=== PATIENT | female | born 1930 | race African-American/Black ===

== ENCOUNTER → 2017-02-05 10:44 | Outpatient (CLI) | payer MEDICARE, OTHER ==
[2016-06-23 11:05] VITALS: BMI 23.9
[~2017-02-05 10:44] MED LIST: ACETAMINOPHEN500 M1 PO; BAYER ASPIRIN325 MG PO; CALAN SR240 MG PO; CATAPRES0.2 MG PO; CRANBERRY 400 M1 TA1 PO; ECOTRIN325 MG PO; FLAGYL250 MG PO; FOLATE0.4 MG PO; HYDRALAZINE HCL50 MG; K-TAB10 MEQ PO; LISINOPRIL-HCTZ1 T13 PO; NORVASC10 MG PO; ZOCOR20 MG PO
[2017-02-05 11:22] LABS: CREATININE - SERUM 1.1 mg/dL (0.6-1.3)
== END | disposition home or self-care (01) ==
LOC: D.LAB 09:45 → D.MRI 10:00 → D.LAB 10:44
PROVIDERS: Neurological Surgery
DX: D35.2 Benign neoplasm of pituitary gland (principal)

== ENCOUNTER 2017-05-10 15:45 | Emergency (ER) | payer MEDICARE, OTHER ==
[2016-06-23 11:05] VITALS: BMI 23.9
== END 2017-05-10 17:08 | disposition home or self-care (01) ==
LOC: D.ER 15:45
DX: S00.93XA Contusion of unspecified part of head, initial encounter (principal); W20.8XXA Other cause of strike by thrown, projected or falling object, initial encounter; Y93.89 Activity, other specified; Y92.029 Unspecified place in mobile home as the place of occurrence of the external cause; I10 Essential (primary) hypertension

== ENCOUNTER 2019-01-03 08:00 | Outpatient (CLI) | payer MEDICARE, OTHER ==
[2016-06-23 11:05] VITALS: BMI 23.9
== END 2019-01-03 23:59 | disposition home or self-care (01) ==
LOC: D.MAMMO 08:00
PROVIDERS: ATTEND Family Medicine Adult Medicine
DX: N63.13 Unspecified lump in the right breast, lower outer quadrant (principal)

== ENCOUNTER → 2019-01-18 09:51 | Outpatient (CLI) | payer MEDICARE, OTHER ==
[2016-06-23 11:05] VITALS: BMI 23.9
== END | disposition home or self-care (01) ==
LOC: D.US 09:51
PROVIDERS: ATTEND Family Medicine Adult Medicine
DX: R92.8 Other abnormal and inconclusive findings on diagnostic imaging of breast (principal)

== ENCOUNTER 2019-06-21 11:03 | Inpatient (IN) | payer MEDICARE, OTHER ==
[~2019-06-21] VITALS: Ht 162.6 cm; Wt 59.0 kg
[2019-06-21 12:05] LABS: CALC OSMOLALITY 278 mosm/kg (275-300); CALCIUM 9.6 mg/dL (8.5-10.1); CARBON DIOXIDE 24.7 mmol/L (21.0-32.0); CHLORIDE - SERUM 100 mmol/L (98-107); CREATININE - SERUM 1.2 mg/dL (0.6-1.3); SODIUM 138 mmol/L (136-145); UREA NITROGEN 20 mg/dL (7-18); eGFR NON AFRICAN AMERICAN 45 mL/min (90-120)
[2019-06-21 12:08] LABS: GLUCOSE 105 mg/dL (74-106)
[2019-06-21 12:09] LABS: POTASSIUM - SERUM 4.3 mmol/L (3.5-5.1)
[2019-06-21 12:25] LABS: ALKALINE PHOSPHATASE 30 U/L (46-116); ALT (SGPT) 22 U/L (10-68); AMYLASE - SERUM 63 U/L (25-115); BILIRUBIN - TOTAL 0.68 mg/dL (0.2-1.3); LIPASE 133 U/L (73-393); PROTEIN - SERUM 8.2 g/dL (6.4-8.2)
[2019-06-21 12:26] LABS: ALBUMIN 4.2 g/dL (3.4-5.0); CKMB 1.2 U/L (0.0-3.6); CREATINE KINASE 170 UL (21-215); TROPONIN-I < 0.017 ng/mL (0.000-0.060)
[2019-06-21 12:37] LABS: BASOPHILS 0.4 % (0-2); EOSINOPHILS 0.4 % (0-7); HEMATOCRIT 36.4 % (36.0-48.0); HEMOGLOBIN 11.9 g/dL (12-16); IMMATURE GRANULOCYTES 0.5 % (0-5); LYMPHOCYTES 26.3 % (15-50); MCH 28.2 pg (26.0-34.0); MCHC 32.7 g/dL (31.0-37.0); MCV 86.3 fL (80.0-100.0); MEAN PLATELET VOLUME 8.7 fL (7.4-10.4); MONOCYTES 11.2 % (2-11); NEUTROPHILS 61.2 % (40-80); PLATELET COUNT 256 10x3/uL (130-400); RBC 4.22 10x6/uL (4.00-5.40); RDW 15.2 % (11.5-14.5); WBC 7.8 10x3/uL (4.8-10.8)
--- NOTE | 2019-06-21 12:50 | NUR ---
ELEVATED LACTIC ACID OF 2.4; DR. JOHNSON INFORMED.
[2019-06-21 13:00] VITALS: BP 139/66
[2019-06-21 14:00] VITALS: BP 149/68
[2019-06-21 14:06] LABS: INR 0.88 (0.85-1.17); PROTIME 11.5 SECONDS (11.6-15.0)
[2019-06-21 14:21] LABS: APTT 20.8 SECONDS (22.8-39.4)
[2019-06-21 14:55] LABS: APPEARANCE CLEAR (CLEAR); BILIRUBIN NEGATIVE (NEGATIVE); COLOR YELLOW (YELLOW); GLUCOSE NEGATIVE (NEGATIVE); KETONE MODERATE mg/dL (NEGATIVE); NITRITE NEGATIVE (NEGATIVE); PROTEIN NEGATIVE (NEGATIVE); UROBILINOGEN NORMAL (NORMAL)
[2019-06-21 14:56] LABS: BACTERIA FEW /hpf (NEGATIVE); EPITHELIAL CELLS 0-5 /hpf (0-5); RED CELLS - URINE 0-5 /hpf (0-5)
[2019-06-21 15:00] VITALS: BP 159/81
[2019-06-21 17:44] LABS: % SATURATION 18 % (15-55); IRON 41 ug/dl (35-150); TOTAL IRON BIND CAPACITY 223 ug/dl (260-445); UNSAT IRON BIND CAPACITY 182 ug/dl (150-375)
[2019-06-21 20:40] VITALS: BMI 22.3
[2019-06-21 21:03] VITALS: BP 141/76
[2019-06-22 01:21] VITALS: BP 149/75
--- NOTE | 2019-06-22 03:30 | NUR ---
I have reviewed this patient and I concur with the Shift Assessment completed by the Licensed Practical Nurse today this shift.
[2019-06-22 05:06] VITALS: BP 160/75
[2019-06-22 05:29] LABS: BASOPHILS 0.3 % (0-2); EOSINOPHILS 0.4 % (0-7); HEMATOCRIT 34.7 % (36.0-48.0); HEMOGLOBIN 11.7 g/dL (12-16); IMMATURE GRANULOCYTES 0.1 % (0-5); LYMPHOCYTES 27.4 % (15-50); MCH 28.5 pg (26.0-34.0); MCHC 33.7 g/dL (31.0-37.0); MCV 84.4 fL (80.0-100.0); MEAN PLATELET VOLUME 9.3 fL (7.4-10.4); MONOCYTES 10.8 % (2-11); PLATELET COUNT 252 10x3/uL (130-400); RBC 4.11 10x6/uL (4.00-5.40); RDW 15.1 % (11.5-14.5); WBC 7.1 10x3/uL (4.8-10.8)
[2019-06-22 06:11] LABS: ALBUMIN 3.8 g/dL (3.4-5.0); BILIRUBIN - TOTAL 0.41 mg/dL (0.2-1.3); CALCIUM 8.9 mg/dL (8.5-10.1); CARBON DIOXIDE 23.6 mmol/L (21.0-32.0); PROTEIN - SERUM 7.4 g/dL (6.4-8.2)
[2019-06-22 06:21] LABS: ANION GAP 15.7 mmol/L (8-16); POTASSIUM - SERUM 3.3 mmol/L (3.5-5.1)
[2019-06-22 08:20] VITALS: BP 159/77
--- NOTE | 2019-06-22 08:25 | NUR ---
RESTING IN BED, NO DITRESS NOTED, IV PROTONIX INFUSING, CONT TO MONITOR STOOLS
[2019-06-22 13:27] VITALS: Ht 162.6 cm; Wt 59.0 kg
[2019-06-22 13:41] VITALS: BP 147/69
--- NOTE | 2019-06-22 19:26 | NUR ---
NO NAUSEA TODAY OR BLOODY STOOLS, CONT TO MONITOR, PROTONIX INFUSING
[2019-06-22 19:30] VITALS: BP 169/82
[2019-06-23 00:30] VITALS: BP 172/80
--- NOTE | 2019-06-23 03:06 | NUR ---
I have reviewed this patient and I concur with the Shift Assessment completed by the Licensed Practical Nurse today this shift.
[2019-06-23 04:49] LABS: BASOPHILS 0.4 % (0-2); EOSINOPHILS 1.4 % (0-7); HEMATOCRIT 36.1 % (36.0-48.0); IMMATURE GRANULOCYTES 0.3 % (0-5); LYMPHOCYTES 42.1 % (15-50); MCHC 33.2 g/dL (31.0-37.0); MCV 84.1 fL (80.0-100.0); MEAN PLATELET VOLUME 9.2 fL (7.4-10.4); MONOCYTES 11.4 % (2-11); NEUTROPHILS 44.4 % (40-80); PLATELET COUNT 288 10x3/uL (130-400); RBC 4.29 10x6/uL (4.00-5.40); RDW 14.8 % (11.5-14.5)
[2019-06-23 05:00] VITALS: BP 168/74
[2019-06-23 05:31] LABS: ALBUMIN 3.7 g/dL (3.4-5.0); ANION GAP 12.7 mmol/L (8-16); BILIRUBIN - TOTAL 0.46 mg/dL (0.2-1.3); CALCIUM 8.8 mg/dL (8.5-10.1); CARBON DIOXIDE 26.5 mmol/L (21.0-32.0); CREATININE - SERUM 0.9 mg/dL (0.6-1.3); POTASSIUM - SERUM 3.2 mmol/L (3.5-5.1); PROTEIN - SERUM 7.2 g/dL (6.4-8.2)
--- NOTE | 2019-06-23 07:10 | NUR ---
PT RESTING IN BED NO SIGNS OF DISTRESS. NO IV AT THIS TIME. DENIES ANY FURHTER NEED AT THIS TIME. CALL LIGHT IN REACH. BED LOW POSITION. NO FAMILY AT BEDSIDE AT THIS TIME.
[2019-06-23 09:21] VITALS: BP 166/89
--- NOTE | 2019-06-23 12:30 | NUR ---
I have reviewed this patient and I concur with the Shift Assessment completed by the Licensed Practical Nurse today this shift.
[2019-06-23 12:54] VITALS: BP 144/78
[2019-06-23 17:28] VITALS: BP 119/70
[2019-06-23 19:30] VITALS: BP 142/81
--- NOTE | 2019-06-24 00:26 | NUR ---
ASSESSED AT THE BEGINNING OF THE SHIFT. PT IS ALERT AND ORIENTED, ABLE TO VERBALIZE NEEDS. SHE IS ABLE TO GET UP TO THE BSC, AND HAS NOT REPORTED ANY BLOODY STOOLS. THE BLOOD SUGAR WAS 148 AND SHE DID NOT RECEIVE COVERAGE.
[2019-06-24 00:30] VITALS: BP 137/78
[2019-06-24 05:19] VITALS: BP 130/72
[2019-06-24 06:48] LABS: ALBUMIN 3.7 g/dL (3.4-5.0); ANION GAP 12.8 mmol/L (8-16); BILIRUBIN - TOTAL 0.42 mg/dL (0.2-1.3); CALCIUM 9.1 mg/dL (8.5-10.1); POTASSIUM - SERUM 3.8 mmol/L (3.5-5.1); PROTEIN - SERUM 7.1 g/dL (6.4-8.2)
[2019-06-24 06:50] LABS: BASOPHILS 0.3 % (0-2); EOSINOPHILS 1.4 % (0-7); HEMATOCRIT 37.1 % (36.0-48.0); HEMOGLOBIN 12.6 g/dL (12-16); IMMATURE GRANULOCYTES 0.3 % (0-5); LYMPHOCYTES 48.4 % (15-50); MCH 28.3 pg (26.0-34.0); MCV 83.4 fL (80.0-100.0); MEAN PLATELET VOLUME 9.2 fL (7.4-10.4); MONOCYTES 13.5 % (2-11); NEUTROPHILS 36.1 % (40-80); PLATELET COUNT 265 10x3/uL (130-400); RBC 4.45 10x6/uL (4.00-5.40); RDW 14.6 % (11.5-14.5)
--- NOTE | 2019-06-24 07:26 | NUR ---
PT IS RESTING IN BED WITH EYES OPEN. RESPIRATIONS ARE EVEN AND UNLABORED. PT IS AAO X 4. PT DENIES PRESENCE OF PAIN/N/V. PT DENIES PRESENCE OF NUMBNESS/TINGLING IN UPPER/LOWER EXTREMITIES. PT STATES THAT SHE HAS NOT HAD A BM "IN A FEW DAYS" AND DENIES PAIN/TENDERNESS UPON PALPATION TO ABDOMEN. BS ACTIVE X 4. BED IS IN THE LOWEST POSITION. CALL LIGHT AND BEDSIDE TABLE ARE WITIHN REACH. SIDE RAILS X 2. PT DENIES FURTHER NEEDS. WILL CONT TO MONITOR.
[2019-06-24 08:50] VITALS: BP 153/78
--- NOTE | 2019-06-24 12:18 | MORECARE ---
CASE MANAGEMENT DISCHARGE SUMMARY PATIENT: SHON PRESSLEY UNIT: [id number] ADM DATE: 06/21/19 AGE: 88 : 32 SEX: F ROOM/BED: D.2228 AUTHOR: RICARDO JONES PHYSICIAN: REFERRING PHYSICIAN: LUIS ARMANDO PIÑA MD DATE OF SERVICE: 06/24/19 Discharge Plan Patient Name: SHON PRESSLEY [facility] [facility] 1930 Planned Disposition: Home Anticipated Discharge Date: 06/24/19 Discharge Date: Expected LOS: 3 Initial Reviewer: [email or web address] Initial Review Date: 06/24/2019 Generated: 06/24/19 1:17 pm Patient Name: SHON PRESSLEY Page [id number] at 1218 All edits/amendments must be made on the electronic document DICTATION DATE: 06/24/191216 GREETING CARD MAKER: TIFFANY 06/24/191216 RPT#: [id number] DC DATE: STATUS: ADM IN [facility] [address] [place] [address] END OF REPORT
--- NOTE | 2019-06-24 12:27 | MORECARE ---
CASE MANAGEMENT DISCHARGE SUMMARY PATIENT: SHON PRESSLEY UNIT: [id number] ADM DATE: 06/21/19 AGE: 88 : 32 SEX: F ROOM/BED: D.2228 AUTHOR: KARNE,DOC PHYSICIAN: REFERRING PHYSICIAN: LUIS ARMANDO PIÑA MD DATE OF SERVICE: 06/24/19 Discharge Plan Patient Name: SHON PRESSLEY Facility: [facility]:[place] : 1930 Planned Disposition: Home Anticipated Discharge Date: 06/24/19 Discharge Date: Expected LOS: 3 Initial Reviewer: [email or web address] Initial Review Date: 06/24/2019 Generated: 06/24/19 1:26 pm Comments DCP- Discharge Planning Updated by [email or web address]: Azalea Toure on 06/24/19 11:[address] Patient Name: SHON PRESSLEY Admission Status: Elective Accout number: [id number] Admission Date: 06-21-2019 : 1930 Admission Diagnosis: Attending: LUIS ARMANDO CHISHOLM Current LOS: 3 Anticipated DC Date: 06-24-2019 Planned Disposition: Home Primary Insurance: MEDICARE A & B Discharge Planning Comments: CM met with patient to complete initial dc planning assessment. CM educated patient on the CM role and verbal consent given by patient to complete assessment. Patient lives at home with her dog. At discharge patient plans to return and feels this is a safe discharge. She states her nephew will drive her home on discharge. CM discussed availability of home health, rehab services, and medical equipment. Patient denied known discharge needs at this time. States she uses her cane for ambulation and is otherwise independent with all ADL's and AIDL's. No needs identified. CM will continue to follow and will assist as needed with dc plans/needs. Retail Financial Analyst: Azalea Toure DCPIA - Discharge Planning Initial Assessment Updated by [email or web address]: Azalea Toure on 06/24/19 12:19 pm * Is the patient Alert and Oriented? Yes * How many steps to enter\exit or inside your home? 0/0 * PCP Dr. Broussard * Pharmacy [facility] * Preadmission Environment Home Alone * ADLs Independent * Equipment Cane Walker Wheelchair * List name and contact numbers for known caregivers / representatives who currently or will assist patient after discharge: Stuart harmon - [phone] Elise Kaba SHAQ - [phone] * Verbal permission to speak to the caregivers and representatives has been obtained from the patient. Yes * Community resources currently utilized None * Additional services required to return to the preadmission environment? No * Can the patient safely return to the preadmission environment? Yes * Has this patient been hospitalized within the prior 30 days at any hospital? No Coverage Notice Reviewer: [id number] Sendy Toure Notice Issued Date-Time: 06/24/2019 12:21 Notice Type: IM Discharge Notice Notice Delivered To: Patient Relationship to Patient: Self Marine Gear Keeper Name: Delivery Method: HAND - Hand Delivered Anahi Days: Prior Verbal Notification: Recipient Understood Notice: Yes Recipient Signature: Yes Med Rec Note Co-signed by Attending: Coverage Notice Comment: IMM explained, signed, given, copy placed in MR Last DP export: 06/24/19 11:18 Patient Name: SHON PRESSLEY Page [phone] at 1227 All edits/amendments must be made on the electronic document DICTATION DATE: 06/24/19 1226 WEB SITE DEVELOPER: TIFFANY 06/24/19 1226 RPT#: [id number] DC DATE: STATUS: ADM IN [facility] [address] [place] [address] END OF REPORT
[2019-06-24 12:28] VITALS: BP 139/71
[2019-06-24] MEDS ORDERED: FLORAJEN3 CAPS460 MG PO (14:52)
[2019-06-24] MEDS ORDERED: OMNICEF300 MG PO (14:54)
--- NOTE | 2019-06-24 15:35 | NUR ---
ALL DISCHARGE INSTRUCTIONS COVERED WITH PT. PT DENIES ANY QUESTIONS/CONCERNS/NEEDS. PIV TO LEFT HAND REMOVED WITH CATHETER TIP INTACT. ALL DISCHARGE PAPERS SIGNED. PT TO NOTIFY NURSE WHEN READY FOR TRANSPORT FROM ROOM.
--- NOTE | 2019-06-24 16:20 | NUR ---
PT TRANSPORTED FROM ROOM VIA WHEELCHAIR. PT DENIES FURTHER QUESTIONS/CONCERNS/NEEDS. NEPHEW TO TAKE PT TO HOME.
--- NOTE | 2019-06-26 14:03 | MORECARE ---
CASE MANAGEMENT DISCHARGE SUMMARY PATIENT: SHON PRESSLEY UNIT: [id number] ADM DATE: 06/21/19 AGE: 88 : 32 SEX: F ROOM/BED: D.2228 AUTHOR: KAREN,DOC PHYSICIAN: REFERRING PHYSICIAN: LUIS ARMANDO PIÑA MD DATE OF SERVICE: 06/26/19 Discharge Plan Patient Name: SHON PRESSLEY Facility: [facility]:[place] : 1930 Planned Disposition: Home Anticipated Discharge Date: 06/24/19 Discharge Date: 06/24/2019 Expected LOS: 3 Initial Reviewer: [email or web address] Initial Review Date: 06/24/2019 Generated: 06/26/19 3:03 pm Comments DCP- Discharge Planning Updated by [id number]: Azalea Toure on 06/24/19 11:[address] Patient Name: SHON PRESSLEY Admission Status: Elective Accout number: [id number] Admission Date: 06-21-2019 : 1930 Admission Diagnosis: Attending: LUIS ARMANDO CHISHOLM Current LOS: 3 Anticipated DC Date: 06-24-2019 Planned Disposition: Home Primary Insurance: MEDICARE A & B Discharge Planning Comments: CM met with patient to complete initial dc planning assessment. CM educated patient on the CM role and verbal consent given by patient to complete assessment. Patient lives at home with her dog. At discharge patient plans to return and feels this is a safe discharge. She states her nephew will drive her home on discharge. CM discussed availability of home health, rehab services, and medical equipment. Patient denied known discharge needs at this time. States she uses her cane for ambulation and is otherwise independent with all ADL's and AIDL's. No needs identified. CM will continue to follow and will assist as needed with dc plans/needs. Horticulture Professor: Azalea Toure DCPIA - Discharge Planning Initial Assessment Updated by [id number]: Azalea Toure on 06/24/19 12:19 pm * Is the patient Alert and Oriented? Yes * How many steps to enter\exit or inside your home? 0/0 * PCP Dr. Broussard * Pharmacy [facility] * Preadmission Environment Home Alone * ADLs Independent * Equipment Cane Walker Wheelchair * List name and contact numbers for known caregivers / representatives who currently or will assist patient after discharge: Stuart harmon - [phone] Elise Kaba SHAQ - [phone] * Verbal permission to speak to the caregivers and representatives has been obtained from the patient. Yes * Community resources currently utilized None * Additional services required to return to the preadmission environment? No * Can the patient safely return to the preadmission environment? Yes * Has this patient been hospitalized within the prior 30 days at any hospital? No Coverage Notice Reviewer: [id number] Sendy Toure Notice Issued Date-Time: 06/24/2019 12:21 Notice Type: IM Discharge Notice Notice Delivered To: Patient Relationship to Patient: Self Box Chipper Name: Delivery Method: HAND - Hand Delivered Anahi Days: Prior Verbal Notification: Recipient Understood Notice: Yes Recipient Signature: Yes Med Rec Note Co-signed by Attending: Coverage Notice Comment: IMM explained, signed, given, copy placed in MR Last DP export: 06/24/19 11:27 Patient Name: SHON PRESSLEY Page [id number] at 1403 All edits/amendments must be made on the electronic document DICTATION DATE: 06/26/191402 GAS SHOVEL OPERATOR: TIFFANY 06/26/191402 RPT#: [id number] DC DATE:06/24/19 STATUS: DIS IN [facility] [address] [place] [address] END OF REPORT
== END 2019-06-24 16:21 | disposition home or self-care (01) | DRG 378 ==
LOC: D.ER 11:03 → D.MS 13:55
PROVIDERS: Emergency Medicine; Family Medicine; ADMIT Family Medicine; ATTEND Family Medicine
DX: K92.2 Gastrointestinal hemorrhage, unspecified (principal); N39.0 Urinary tract infection, site not specified; D64.9 Anemia, unspecified; I10 Essential (primary) hypertension; I25.10 Atherosclerotic heart disease of native coronary artery without angina pectoris; E11.65 Type 2 diabetes mellitus with hyperglycemia; E03.9 Hypothyroidism, unspecified; R19.5 Other fecal abnormalities

== ENCOUNTER 2020-02-02 13:46 | Inpatient (IN) | payer OTHER ==
[~2020-02-02] VITALS: Ht 162.6 cm; Wt 46.3 kg
[~2020-02-02 13:46] MED LIST changes: +FLORAJEN3 CAPS460 MG PO; +OMNICEF300 MG PO
--- NOTE | 2020-02-02 14:39 | NUR ---
STOOL POSITIVE FOR OCCULT BLOOD.
[2020-02-02 14:51] LABS: HEMATOCRIT 38.8 % (36.0-48.0); HEMOGLOBIN 12.7 g/dL (12-16); MCH 29.1 pg (26.0-34.0); MCHC 32.7 g/dL (31.0-37.0); MEAN PLATELET VOLUME 10.7 fL (7.4-10.4); PLATELET COUNT 297 10x3/uL (130-400); RBC 4.36 10x6/uL (4.00-5.40); RDW 15.4 % (11.5-14.5); WBC 21.3 10x3/uL (4.8-10.8)
[2020-02-02 15:02] LABS: APTT 26.9 SECONDS (22.8-39.4); INR 1.09 (0.85-1.17)
[2020-02-02 15:08] LABS: ANION GAP 15.9 mmol/L (8-16); CALCIUM 9.2 mg/dL (8.5-10.1); CREATININE - SERUM 2.3 mg/dL (0.6-1.3); POTASSIUM - SERUM 4.9 mmol/L (3.5-5.1)
[2020-02-02 15:13] LABS: ALBUMIN 3.8 g/dL (3.4-5.0); BILIRUBIN - TOTAL 0.47 mg/dL (0.2-1.3); PROTEIN - SERUM 7.5 g/dL (6.4-8.2)
[2020-02-02 15:34] LABS: LYMPHOCYTES 8 % (15-50); MONOCYTES 5 % (2-11); NEUTROPHILS 75 % (40-80); PLATELET ESTIMATE NORMAL
[2020-02-02] MEDS ORDERED: HYDRALAZINE HCL50 MG PO (15:34)
[2020-02-02] MEDS ORDERED: FEMARA2.5 MG PO (15:36)
[2020-02-02] MEDS ORDERED: CYCLOBENZAPRINE10 MG PO (15:38)
[2020-02-02] MEDS ORDERED: PROTONIX40 MG PO (15:39)
--- NOTE | 2020-02-02 15:44 | NUR ---
PT TO CT
[2020-02-02 16:20] VITALS: BP 152/71
[2020-02-02 17:44] VITALS: BP 161/69
--- NOTE | 2020-02-02 17:45 | NUR ---
PT LAYING IN BED. NO DISTRESS NOTED. COLOR WNL. WILL CONTINUE TO MONITOR.
--- NOTE | 2020-02-02 18:21 | NUR ---
CALLED REPORT TO ANN CARVALHO
[2020-02-02 19:29] LABS: HEMATOCRIT 36.2 % (36.0-48.0); HEMOGLOBIN 11.9 g/dL (12-16)
[2020-02-02 20:00] VITALS: BP 127/59
--- NOTE | 2020-02-02 20:00 | NUR ---
PATIENT RESTING IN BED WITH EYES OPEN. NO S/S OF ACUTE DISTRESS. NO C/O AT THIS TIME. PATIENT ARRIVED FROM ER SHORTLY BEFORE SHIFT CHANGE. PATIENT HAS IV IN RIGHT AC, NORMAL SALINE @ 125 ML/HR. IV IS PATENT WITHOUT REDNESS, SWELLING, OR TENDERNESS. PATIENT USES WAKLER. PATIENT UP ADLIB TO THE BATHROOM. CALL LIGHT WITHIN REACH. WILL CONTINUE TO MONITOR.
[2020-02-02 23:34] LABS: HEMATOCRIT 32.7 % (36.0-48.0); HEMOGLOBIN 10.6 g/dL (12-16)
[2020-02-02 23:43] VITALS: BP 127/59; BMI 17.5
[2020-02-03] VITALS: BP 126/60
[2020-02-03 00:22] LABS: CREATINE KINASE 58 UL (21-215)
[2020-02-03 00:23] LABS: TROPONIN-I < 0.017 ng/mL (0.000-0.060)
[2020-02-03 04:00] VITALS: BP 110/57
[2020-02-03 05:03] LABS: BASOPHILS 0.1 % (0-2); EOSINOPHILS 0.3 % (0-7); HEMATOCRIT 32.1 % (36.0-48.0); HEMOGLOBIN 10.3 g/dL (12-16); IMMATURE GRANULOCYTES 0.2 % (0-5); LYMPHOCYTES 12.4 % (15-50); MCH 28.5 pg (26.0-34.0); MCHC 32.1 g/dL (31.0-37.0); MCV 88.7 fL (80.0-100.0); MEAN PLATELET VOLUME 10.6 fL (7.4-10.4); MONOCYTES 6.1 % (2-11); NEUTROPHILS 80.9 % (40-80); RBC 3.62 10x6/uL (4.00-5.40); RDW 15.5 % (11.5-14.5)
[2020-02-03 05:19] LABS: PLATELET COUNT 215 10x3/uL (130-400); WBC 13.3 10x3/uL (4.8-10.8)
[2020-02-03 05:26] LABS: BILIRUBIN - TOTAL 0.3 mg/dL (0.2-1.3); CALCIUM 8.3 mg/dL (8.5-10.1); CARBON DIOXIDE 20.9 mmol/L (21.0-32.0); MAGNESIUM - SERUM 2.1 mg/dL (1.8-2.4); PROTEIN - SERUM 5.9 g/dL (6.4-8.2)
[2020-02-03 05:31] LABS: ANION GAP 14.7 mmol/L (8-16); CREATININE - SERUM 1.3 mg/dL (0.6-1.3); POTASSIUM - SERUM 3.6 mmol/L (3.5-5.1)
--- NOTE | 2020-02-03 08:30 | NUR ---
ASSESSMENT PER FLOW SHEET. PATIENT IS WITHOUT DISTRESS.DENIES NEEDS.CALL LIGHT IN REACH. CRISTINO ON AND WORKING.
[2020-02-03 08:49] VITALS: BP 136/66
[2020-02-03 12:47] VITALS: BP 140/55
--- NOTE | 2020-02-03 12:49 | NUR ---
DENIES NEEDS. LUNCH TRAY SERVED
[2020-02-03 14:21] VITALS: Ht 162.6 cm; Wt 46.3 kg
[2020-02-03 16:00] VITALS: BP 145/69
[2020-02-03 16:17] LABS: BILIRUBIN NEGATIVE (NEGATIVE); GLUCOSE NEGATIVE (NEGATIVE); KETONE NEGATIVE (NEGATIVE); NITRITE NEGATIVE (NEGATIVE); SPECIFIC GRAVITY 1.015 (1.005-1.020); UROBILINOGEN NORMAL (NORMAL)
[2020-02-03 16:18] LABS: BACTERIA MANY /hpf (NEGATIVE); EPITHELIAL CELLS 0-5 /hpf (0-5); RED CELLS - URINE 0-5 /hpf (0-5); WHITE CELLS - URINE 0-5 /hpf (NEGATIVE)
--- NOTE | 2020-02-03 18:21 | NUR ---
REMAINS WITHOUT CHANGE. CONT PLAN OF CARE
[2020-02-03 20:00] VITALS: BP 139/66
--- NOTE | 2020-02-03 21:00 | NUR ---
PATIENT RESTING IN BED WATCHING TV. NO S/S OF ACUTE DISTRESS. NO C/O AT THIS TIME. PATIENT HAS RIGHT AC IV, NORMAL SALINE @ 125 ML/HR AND PROTONIX AT 10 ML/HR. IV IS PATENT WITHOUT REDNESS, SWELLING, OR TENDERNESS. PATIENT HAS TELEMETRY ON: 72 NORMAL SINUS WITH PAC. CALL LIGHT WITHIN REACH. WILL CONTINUE TO MONITOR.
[2020-02-04] VITALS: BP 125/78
--- NOTE | 2020-02-04 03:43 | NUR ---
I have reviewed this patient and I concur with the Shift Assessment completed by the Licensed Practical Nurse today this shift.
[2020-02-04 04:00] VITALS: BP 155/70
[2020-02-04 06:21] LABS: BASOPHILS 0.2 % (0-2); EOSINOPHILS 1.5 % (0-7); HEMATOCRIT 28.4 % (36.0-48.0); HEMOGLOBIN 9.2 g/dL (12-16); IMMATURE GRANULOCYTES 0.3 % (0-5); LYMPHOCYTES 33.3 % (15-50); MCH 28.3 pg (26.0-34.0); MCHC 32.4 g/dL (31.0-37.0); MCV 87.4 fL (80.0-100.0); MEAN PLATELET VOLUME 9.4 fL (7.4-10.4); MONOCYTES 6.7 % (2-11); PLATELET COUNT 210 10x3/uL (130-400); RBC 3.25 10x6/uL (4.00-5.40); RDW 15.3 % (11.5-14.5)
[2020-02-04 06:25] LABS: WBC 6.6 10x3/uL (4.8-10.8)
[2020-02-04 06:52] LABS: ALBUMIN 2.5 g/dL (3.4-5.0); ANION GAP 11.9 mmol/L (8-16); BILIRUBIN - TOTAL 0.31 mg/dL (0.2-1.3); CALCIUM 7.6 mg/dL (8.5-10.1); CARBON DIOXIDE 21.5 mmol/L (21.0-32.0); MAGNESIUM - SERUM 1.5 mg/dL (1.8-2.4); POTASSIUM - SERUM 3.4 mmol/L (3.5-5.1); PROTEIN - SERUM 4.7 g/dL (6.4-8.2)
--- NOTE | 2020-02-04 08:00 | NUR ---
PATIENT IN BED WITH IV INTACT. NO COMPLAINTS OR SIGNS OF DISTRESS. CALL LIGHT WITHIN REACH.
--- NOTE | 2020-02-04 08:45 | NUR ---
PATIENT IN BED WITH IV INTACT. NO COMPLAINTS OR SIGNS OF DISTRESS. CALL LIGHT WITHIN REACH.
[2020-02-04 09:18] VITALS: BP 117/72
--- NOTE | 2020-02-04 12:45 | NUR ---
PATIENT IV LEAKING. REMOVED WITH CATH TIP INTACT BY ALETA CARVALHO. TRIED TO RESTART WELL. UNABLE TO AT THIS TIME. CALLED KIM. OK TO LEAVE IV OUT FOR NOW. CHANGE MEDS TO PO. PATIENT WITH CALL LIGHT WITHIN REACH.
[2020-02-04 13:21] VITALS: BP 165/86
--- NOTE | 2020-02-04 14:00 | NUR ---
PT STATED THAT PATIENT IS ABLE TO AMBULATE WITH NO PROBLEMS. CALL LIGHT WITHIN REACH.
[2020-02-04 16:35] VITALS: BP 173/88
--- NOTE | 2020-02-04 18:55 | NUR ---
PATIENT IN BED WITH EYES CLOSED RESTING QUIETLY. CALL LIGHT WITHIN REACH.
--- NOTE | 2020-02-04 19:00 | NUR ---
BEDSIDE REPORT RECEIVED AND CARE OF PT ASSUMED. PT SITTING UP IN BED TALKING ON THE PHONE. NO IV ACCESS. TELEMETRY IN PLACE PER ORDER. WILL MONITOR FOR NEEDS.
[2020-02-04 20:00] VITALS: BP 167/86
--- NOTE | 2020-02-04 21:04 | NUR ---
HS MEDICATIONS GIVEN. PROVIDED BRIEFS PER REQUEST. WILL CONTINUE TO MONITOR FOR NEEDS.
--- NOTE | 2020-02-04 21:05 | NUR ---
FSBS 110 THIS CHECK REQUIRING NO COVERAGE PER SLIDING SCALE.
[2020-02-05] VITALS: BP 162/81
[2020-02-05 04:00] VITALS: BP 158/98
[2020-02-05 06:47] LABS: BASOPHILS 0.4 % (0-2); EOSINOPHILS 1.8 % (0-7); HEMATOCRIT 30.2 % (36.0-48.0); HEMOGLOBIN 9.9 g/dL (12-16); IMMATURE GRANULOCYTES 0.2 % (0-5); LYMPHOCYTES 37.4 % (15-50); MCH 28.4 pg (26.0-34.0); MCHC 32.8 g/dL (31.0-37.0); MCV 86.5 fL (80.0-100.0); MEAN PLATELET VOLUME 9.8 fL (7.4-10.4); MONOCYTES 8.2 % (2-11); PLATELET COUNT 229 10x3/uL (130-400); RBC 3.49 10x6/uL (4.00-5.40); RDW 15.2 % (11.5-14.5); WBC 5.7 10x3/uL (4.8-10.8)
[2020-02-05 07:01] LABS: ALBUMIN 2.7 g/dL (3.4-5.0); ANION GAP 9.4 mmol/L (8-16); BILIRUBIN - TOTAL 0.33 mg/dL (0.2-1.3); CALCIUM 8.3 mg/dL (8.5-10.1); CARBON DIOXIDE 21.8 mmol/L (21.0-32.0); CREATININE - SERUM 1.1 mg/dL (0.6-1.3); MAGNESIUM - SERUM 1.5 mg/dL (1.8-2.4); POTASSIUM - SERUM 4.2 mmol/L (3.5-5.1); PROTEIN - SERUM 5.5 g/dL (6.4-8.2)
[2020-02-05 09:38] VITALS: BP 158/91
--- NOTE | 2020-02-05 09:55 | NUR ---
PT ALERT X 4. BREATH SOUNDS CLEAR BILAT. NO IV ACCESS. BOWEL SOUNDS HYPERACTIVE X 4. FAMILY AT BEDSIDE. BED LOW, CALL LIGHT IN REACH. NO OTHER NEEDS AT THIS TIME.
[2020-02-05] MEDS ORDERED: FLAGYL500 MG PO (11:57)
[2020-02-05] MEDS ORDERED: LEVOFLOXACIN500 MG PO (11:57)
[2020-02-05] MEDS ORDERED: FLORAJEN3 CAPS460 MG PO (11:57)
--- NOTE | 2020-02-05 13:40 | NUR ---
DISCHARGE PAPERWORK SIGNED, ALL QUESTIONS ANSWERED. ESCORTED OUT VIA WHEELCHAIR
--- NOTE | 2020-02-05 15:29 | MORECARE ---
CASE MANAGEMENT DISCHARGE SUMMARY PATIENT: SHON PRESSLEY UNIT: [id number] ADM DATE: 02/02/20 AGE: 89 : 32 SEX: F ROOM/BED: D.2218 AUTHOR: RICARDO JONES PHYSICIAN: REFERRING PHYSICIAN: NATHALIE TANG MD DATE OF SERVICE: 02/05/20 Discharge Plan Patient Name: SHON PRESSLEY Facility: [facility]:[place] : 1930 Planned Disposition: Home Anticipated Discharge Date: Discharge Date: 02/05/2020 Expected LOS: Initial Reviewer: [id number] Initial Review Date: 02/02/2020 Generated: 02/05/20 4:28 pm Coverage Notice Reviewer: [id number] Sendy Doshi Notice Issued Date-Time: 02/05/2020 12:24 Notice Type: IM Discharge Notice Notice Delivered To: Patient Relationship to Patient: Space [employer] Miss[employer] Operations Spacelift Name: Delivery Method: HAND - Hand Delivered Anahi Days: Prior Verbal Notification: Recipient Understood Notice: Yes Recipient Signature: Yes Med Rec Note Co-signed by Attending: Coverage Notice Comment: Patient Name: SHON PRESSLEY Page [id number] at 1529 All edits/amendments must be made on the electronic document DICTATION DATE: 02/05/201527 PUTTY AND PATCH WORKER: TIFFANY 02/05/20 1528 RPT#: [id number] DC DATE:02/05/20 STATUS: DIS IN [facility] [address] [place] [address] END OF REPORT
--- NOTE | 2020-02-05 15:35 | MORECARE ---
CASE MANAGEMENT DISCHARGE SUMMARY PATIENT: SHON PRESSLEY UNIT: [id number] ADM DATE: 02/02/20 AGE: 89 : 32 SEX: F ROOM/BED: D.2218 AUTHOR: KAREN,DOC PHYSICIAN: REFERRING PHYSICIAN: NATHALIE TANG MD DATE OF SERVICE: 02/05/20 Discharge Plan Patient Name: SHON PRESSLEY Facility: [facility]:[place] : 1930 Planned Disposition: Home Anticipated Discharge Date: Discharge Date: 02/05/2020 Expected LOS: Initial Reviewer: [email or web address] Initial Review Date: 02/02/2020 Generated: 02/05/20 4:35 pm Comments DCP- Discharge Planning Updated by [email or web address]: Kaylen Doshi on 02/05/20 2:[address] Patient Name: SHON PRESSLEY Admission Status: ER Accout number: [id number] Admission Date: 02-02-2020 : 1930 Admission Diagnosis:NONINFECTIVE GASTROENTERITIS AND COLITIS, UNSPECIFIED Attending: CYRIL TANG Current LOS: 3 Anticipated DC Date: Planned Disposition: Home Primary Insurance: [employer] Discharge Planning Comments: CM met with patient to complete initial dc planning assessment. CM educated patient on the CM role and verbal consent given by patient to complete assessment. Patient lives at home alone. Patient states that she has family that lives next door and across the street. Patient is independent. At discharge patient plans to return home and feels this is a safe discharge. CM discussed availability of home health, rehab services, and medical equipment. Patient will have family to transport home. Patient denied known discharge needs at this time. D/C IMM signed 02/05/20 @ 1224.CM will continue to follow and will assist as needed with dc plans/needs. Freight Sorter: Kaylen Doshi DCPIA - Discharge Planning Initial Assessment Updated by [email or web address]: Kaylen Doshi on 02/05/20 3:29 pm * Is the patient Alert and Oriented? Yes * How many steps to enter\exit or inside your home? * PCP [place] * Pharmacy [facility] * Preadmission Environment Home Alone * ADLs Independent * Other Equipment W/C, WALKER, CANE * List name and contact numbers for known caregivers / representatives who currently or will assist patient after discharge: DOM JONES - [phone] STEVE YEE - [phone] * Verbal permission to speak to the caregivers and representatives has been obtained from the patient. Yes * Community resources currently utilized None * Additional services required to return to the preadmission environment? No * Can the patient safely return to the preadmission environment? Yes * Has this patient been hospitalized within the prior 30 days at any hospital? No Coverage Notice Reviewer: [email or web address] Sendy Doshi Notice Issued Date-Time: 02/05/2020 12:24 Notice Type: IM Discharge Notice Notice Delivered To: Patient Relationship to Patient: 4 Year Olds Preschool Teacher Name: Delivery Method: HAND - Hand Delivered Anahi Days: Prior Verbal Notification: Recipient Understood Notice: Yes Recipient Signature: Yes Med Rec Note Co-signed by Attending: Coverage Notice Comment: Last DP export: 02/05/20 2:29 p Patient Name: SHON PRESSLEY Page [id number] at 1535 All edits/amendments must be made on the electronic document DICTATION DATE: 02/05/20 1535 INOCULATOR: TIFFANY 02/05/20 1535 RPT#: [id number] DC DATE:02/05/20 STATUS: DIS IN [facility] [address] [place] [address] END OF REPORT
== END 2020-02-05 13:58 | disposition home or self-care (01) | DRG 392 ==
LOC: D.ER 13:46 → D.MS 17:58
PROVIDERS: Family Medicine; ADMIT Emergency Medicine; ATTEND Emergency Medicine
DX: K52.9 Noninfective gastroenteritis and colitis, unspecified (principal); K92.2 Gastrointestinal hemorrhage, unspecified; N17.9 Acute kidney failure, unspecified; D64.9 Anemia, unspecified; E11.65 Type 2 diabetes mellitus with hyperglycemia; I10 Essential (primary) hypertension; I25.10 Atherosclerotic heart disease of native coronary artery without angina pectoris; E03.9 Hypothyroidism, unspecified